=== PATIENT | female | born 1945 | race Caucasian/White ===

== ENCOUNTER → 2022-07-31 | Outpatient (CLI) | payer OTHER ==
[2022-07-31 15:03] LABS: Source, Urine Straight Cath
[2022-07-31 16:44] LABS: Appearance, Urine Clear (Clear); Bilirubin, Urine Neg (Neg); Blood, Urine 1+ (Neg); Color, Urine Yellow (P-Yellow); Glucose Qualitative, Urine Neg (Neg); Ketones, Urine Neg (Neg); Leukocyte Esterase, Urine 2+ (Neg); Nitrite, Urine Neg (Neg); Protein, Urine 2+ (Neg); Urobilinogen, Urine NORM (Normal)
[2022-07-31 16:54] LABS: Hyaline Casts 0-2 /lpf (0-2); White Blood Cells, Urine TNTC /hpf (0-5)
[2022-07-31 16:55] LABS: Bacteria Few /hpf; Renal Epithelial Rare /hpf (0-Rare); Squamous Epithelial Cells Not Seen /hpf (Few); Transitional Epithelial Cells Few /hpf (0-Rare)
== END | disposition home or self-care (01) ==
LOC: EDSTATUS 10:01 → LAB RH 15:01
PROVIDERS: Internal Medicine
DX: N39.0 Urinary tract infection, site not specified (principal)
CPT/HCPCS: 81001; 87086; 87106